=== PATIENT | male | born 1930 | race Caucasian/White ===

== ENCOUNTER → 2016-09-17 | Day surgery (SDC) | payer MEDICARE, BC ==
--- NOTE | 2016-09-14 14:23 | Diagnostic Imaging Report ---
APPROVED REPORT CPT Code: 83110 Present Symptoms Lower Extremity Edema: Bilateral BILATERAL: Imaging reveals a patent deep venous system bilaterally. There is no evidence of thrombus within the femoral, popliteal or tibial segments. The greater saphenous veins are also within normal limits. Doppler indicates normal spontaneous flow within these segments.
--- NOTE | 2016-09-14 14:23 | Diagnostic Imaging Report ---
APPROVED REPORT CPT Code: 52221 Present Symptoms Comments: Pre-op dialysis access evaluation Vein Measurements(cm) Cephalic Basilic Right LeftRight Left 0.36Upper Arm0.260.73Mid Upper Arm0.62 0.50Mid Upper Arm0.220.60Antecubital Fossa0.66 0.26Upper Forearm0.60 0.40Antecubital Fossa0.47Fjopx3.26 0.36Wrist VEIN MAPPING: The right and left basilic and left cephalic veins were imaged and measured to evaluate as a potential graft for dialysis access. BILATERAL UPPER EXTREMITY: Imaging reveals patency of the internal jugular, subclavian, axillary and brachial veins. The cephalic and basilic veins are also patent. Doppler indicates normal spontaneous flow within these venous segments, bilaterally.
[~2016-09-17] VITALS: Ht 176.5 cm; Wt 103.4 kg
[~2016-09-17] MED LIST: AMLODIPINE BES2.5 MG ORAL; AREDS PO; Bacitracin 50000 Units Vial ONE; Bacitracin Oint 15gm Tube TOPIC ONE; Bupivacaine 0.5% Inj 30 ml vial INJ ONE; Dexamethasone 4mg/ml vial ONE; Heparin 5000 units/ml inj ONE; Hydromorphone 0.5mg/0.5ml inj IVP PRN; LEVOTHYROXINE25 MCG ORAL; Lidocaine 1% Plain 30 ml INJ ONE; MIRALAX17 G2 ORAL; Midazolam 2mg/2ml Inj ONE; NITROGLYCERIN 50 MG/10 ML IV ONE; NS 275ml ONE; NS Irrig 1000ml IRRIG ONE; PAPAVERINE 30 MG/ML IVP ONE; PATANASE30.5 GM NS; Propofol 10mg/ml 20ml IV ONE; Sterile Water Irrig 1000ml IRRIG ONE; Surgicel 4in x 8in TOPIC ONE; ZANTAC150 MG ORAL; fentaNYL 250mcg/5ml ONE
[2016-09-17 11:24] VITALS: BP 155/66
--- NOTE | 2016-09-17 12:58 | Pre-Procedure Note/Attestation ---
Pre-Procedure Note/Attestation Complete Prior to Procedure Planned Procedure: left Procedure Narrative: left arm dialysis shunt placement Indications for Procedure Pre-Operative Diagnosis: ESRD Attestation I attest that I discussed the nature of the procedure; its benefits; risks and complications; and alternatives (and the risks and benefits of such alternatives ), prior to the procedure, with the patient (or the patient's legal security representative). I attest that, if there was a reasonable possibility of needing a blood transfusion, the patient (or the patient's legal security representative) was given the [facility] standardized written summary, pursuant to the [place] Blood Safety Act ([place] Health and Safety Code # 1645, as amended). I attest that I re-evaluated the patient just prior to the surgery and that there has been no change in the patient's H&P, except as documented below: CONNIE NETTLES Sep 17, 2016 12:58
--- NOTE | 2016-09-17 13:23 | Anethesia Preoperative Eval ---
Anesthesia Pre-op PMH/ROS General Date of Evaluation: Sep 17, 2016 Time of Evaluation: 12:30 Anesthesiologist: DELFINA ASA Score: ASA 3 Mallampati Score Class I : Soft palate, uvula, fauces, pillars visible Class II: Soft palate, uvula, fauces visible Class III: Soft palate, base of uvula visible Class IV: Only hard plate visible Mallampati Classification: Class II Surgeon: THO Diagnosis: ESRD Surgical Procedure: AV FISTULA PLACEMENT L ARM Anesthesia History: none Family History: no anesthesia problems Allergies: Coded Allergies: PENICILLINS (Verified Allergy, Unknown, 09/16/16) METHYLDOPA (Verified Adverse Reaction, Severe, Nausea/Vomiting, 09/16/16) Medications: see eMAR Past Medical History Cardiovascular: Reports: HTN Pulmonary: Denies: COPD, LEXIE, asthma, other Gastrointestinal/Genitourinary: Reports: ESRD, Denies: CRI, GERD, other Neurologic/Psychiatric: Denies: CVA, TIA, dementia, depression/anxiety, other Endocrine: Denies: DM, hypothyroidism, other, steroids HEENT: Denies: [place] (L), [place] (R), cataract (L), cataract (R), glaucoma, other Hematology/Immune: Denies: DVT, anemia, bleeding disorder, other Musculoskeletal/Integumentary: Denies: DDD, DJD, OA, RA, edema, other Other: obesity Anesthesia Pre-op Phys. Exam Physician Exam Last Vital Signs Date Time Temp Pulse Resp B/P Pulse Ox O2 Delivery O2 Flow Rate FiO2 09/17/16 11:24 97.5 71 20 155/66 100 Room Air Constitutional: NAD Neurologic: CN 2-12 intact Cardiovascular: RRR Respiratory: CTA Gastrointestinal: S/NT/ND Airway Exam Mallampati Score: Class II MO: full ROM: full Teeth: intact Dentures: no lower, no upper Anesthesia Pre-op A/P Labs Chemistry Test 09/17/16 11:15 Potassium Level 3.5 mEQ/L (3.4-4.9) Risk Assessment & Plan Assessment: ASA3 Plan: MAC Status Change Before Surgery: No Pre-Antibiotics Given Within 1 Hr of Incision: ETHAN Au M.D. Sep 17, 2016 13:23
--- NOTE | 2016-09-17 13:25 | Immediate Post-Op Evaluation ---
Immediate Post-Op Evalulation Immediate Post-Op Evalulation Procedure: AV FISTULA PLACEMENTL ARM Date of Evaluation: Sep 17, 2016 Time of Evaluation: 15:30 IV Fluids: 300 Blood Products: 0 Estimated Blood Loss: 0 Urinary Output: 0 Blood Pressure Systolic: 139 Blood Pressure Diastolic: 69 Pulse Rate: 62 Respiratory Rate: 17 O2 Sat by Pulse Oximetry: 98 Temperature (Fahrenheit): 97.1 Pain Score (1-10): 1 Nausea: No Vomiting: No Complications 0 Patient Status: awake, patent, none Hydration Status: adequate Given Within 1 Hr of Incision: ETHAN Au M.D. Sep 17, 2016 13:25
--- NOTE | 2016-09-17 13:26 | 48 Hour Post Anesthesia Eval ---
Post Anesthesia Evaluation Procedure: AV FISTULA PLACEMENTL ARM Date of Evaluation: Sep 17, 2016 Time of Evaluation: 14:55 Blood Pressure Systolic: 145 0: 70 Pulse Rate: 76 Respiratory Rate: 14 Temperature (Fahrenheit): 98 O2 Sat by Pulse Oximetry: 99 Airway: patent Nausea: No Vomiting: No Hydration Status: adequate Cardiopulmonary Status: WNL Mental Status/LOC: patient returned to baseline Post-Anesthesia Complications: O Follow-up care needed: ready to discharge ETHAN MATHIS M.D. Sep 17, 2016 13:26
[2016-09-17 15:15] VITALS: BP 139/69
--- NOTE | 2016-09-17 15:17 | Brief Operative Note ---
Immediate Post Operative Note Operative Note Pre-op Diagnosis: ESRD Procedure: LUE Jj AVF creation Post-op Diagnosis: same as pre-op Findings: consistent w/pre-op dx studies Surgeon: Xiao Anesthesia: local, MAC Specimen: none Complications: none Condition: stable Estimated Blood Loss: minimal Drains: none Implant(s) used?: No CONNIE NETTLES Sep 17, 2016 15:17
[2016-09-17 15:20] VITALS: BP 132/63
[2016-09-17 15:25] VITALS: BP 128/68
[2016-09-17 15:40] VITALS: BP 115/54
[2016-09-17 15:55] VITALS: BP 117/63
--- NOTE | 2016-09-17 21:17 | Operative Note - Dictated ---
DATE OF OPERATION: 09/17/2016 PREOPERATIVE DIAGNOSIS: End-stage renal disease. POSTOPERATIVE DIAGNOSIS: End-stage renal disease. FINDINGS: Below. PROCEDURES: 1. Creation of a Jj dialysis arteriovenous fistula in the left upper extremity. 2. Dilation of left cephalic vein. 3. Intra-arterial and intravenous nitroglycerin injection. SURGEON: Latrell Hagen M.D. ANESTHESIA: MAC with local. INDICATION: The patient is expected to be needing dialysis in the near future and therefore an access was requested per the box coverer hand. INTRAOPERATIVE FINDINGS: The cephalic vein at the wrist level was explored and noted to dilate adequately as described below and therefore a Jj fistula was created as described. The radial artery was also adequate for this purpose. At the end of the procedure, there was a good thrill present in the AV fistula and a good Doppler signal was present at the level of the palmar arch. PROCEDURE IN DETAIL: With the patient in supine position and after the left upper extremity was prepped and draped in usual sterile fashion. Skin was infiltrated with local anesthetic and a longitudinal incision was made along the course of the radial artery at the left wrist level through which the artery was exposed and encircled with vessel loops proximally and distally. The cephalic vein more lateral and the incision was also exposed and followed more distally where it was ligated and divided. It was mobilized enough to allow direct anastomosis to the radial artery. Serial dilators up to 3.5 mm were passed into the vein without significant resistance. It was flushed with heparinized saline and was noted to be widely patent. The end of the vein was then spatulated and after the radial artery was clamped proximally and distally. Longitudinal arteriotomy was made through which the vessel was flushed with heparinized saline proximally and distally and the end-to-side anastomosis to the vein carried out with a continuous suture of 6-0 Prolene. After removal of the vessel loops, excellent flow to the vein was noted and a palpable thrill was present as described above. The wound was irrigated with antibiotic solution and when hemostasis was established it was closed with interrupted sutures of 3-0 Vicryl for the deep layer followed by 4-0 Monocryl subcuticular continuous fashion for skin closure. Skin was cleaned and dried and Dermabond applied to the incision. The patient tolerated the procedure well and was transferred out of the room in stable condition. At the conclusion of procedure, sponge, needle, and instrument counts were correct. ESTIMATED BLOOD LOSS: Minimal. COMPLICATIONS: None. DRAINS: None. SPECIMEN: None. Latrell Hagen M.D. DR: OCTAVIO JOB#: [id number] CC: Diego Grady M.D. ; Fax#: [phone]
[2016-10-07 13:30] VITALS: BP 145/70
== END | disposition home or self-care (01) ==
LOC: SUR 10:38
DX: I12.0 Hypertensive chronic kidney disease with stage 5 chronic kidney disease or end stage renal disease (principal); N18.6 End stage renal disease; Z99.2 Dependence on renal dialysis; R60.9 Edema, unspecified; E03.9 Hypothyroidism, unspecified; E55.9 Vitamin D deficiency, unspecified; K21.9 Gastro-esophageal reflux disease without esophagitis; D68.69 Other thrombophilia; E66.9 Obesity, unspecified; Z68.34 Body mass index [BMI] 34.0-34.9, adult; K29.70 Gastritis, unspecified, without bleeding; K64.4 Residual hemorrhoidal skin tags; M54.9 Dorsalgia, unspecified; M54.30 Sciatica, unspecified side; Z79.1 Long term (current) use of non-steroidal anti-inflammatories (NSAID); Z79.899 Other long term (current) drug therapy; Z88.0 Allergy status to penicillin; Z88.8 Allergy status to other drugs, medicaments and biological substances
CPT/HCPCS: 36415; 84132; 93922; 93970; 94003; 94150; J2250; J2405

== ENCOUNTER → 2016-10-22 | Outpatient (CLI) | payer MEDICARE, BC ==
[~2016-10-22] MED LIST changes: -Bacitracin 50000 Units Vial ONE; -Bacitracin Oint 15gm Tube TOPIC ONE; -Bupivacaine 0.5% Inj 30 ml vial INJ ONE; -Dexamethasone 4mg/ml vial ONE; -Heparin 5000 units/ml inj ONE; -Hydromorphone 0.5mg/0.5ml inj IVP PRN; -Lidocaine 1% Plain 30 ml INJ ONE; -Midazolam 2mg/2ml Inj ONE; -NITROGLYCERIN 50 MG/10 ML IV ONE; -NS 275ml ONE; -NS Irrig 1000ml IRRIG ONE; -PAPAVERINE 30 MG/ML IVP ONE; -Propofol 10mg/ml 20ml IV ONE; -Sterile Water Irrig 1000ml IRRIG ONE; -Surgicel 4in x 8in TOPIC ONE; -fentaNYL 250mcg/5ml ONE
--- NOTE | 2016-10-26 12:11 | Diagnostic Imaging Report ---
APPROVED REPORT CPT Code: 68778 Present Symptoms Comments: AV fistula evaluation and vein mapping(left arm) Risk Factors Post OP Vein Measurements(cm) Cephalic Basilic Right LeftRight Left Upper Arm0.29Mid Upper Arm0.82 Mid Upper Arm0.23Antecubital Fossa6.5 Upper Forearm7.2 Antecubital Fossa0.26Wrist Upper Forearm0.28 Doppler Evaluation (Left) IJV (Left): Spontaneous, Phasic, Augmentation(Dist.), SCV (Left): Spontaneous, Phasic, Augmentation(Dist.), Axillary (L): Spontaneous, Phasic, Augmentation(Dist.), Brachial (L): Spontaneous, Phasic, Augmentation(Dist.), Basilic (L): Spontaneous, Phasic, Augmentation(Dist.), Cephalic (L) : Spontaneous, Phasic, Augmentation(Dist.), VEIN MAPPING: The left basilic and cephalic veins were imaged and measured to evaluate. LEFT UPPER EXTREMITY AVF: Imaging reveals patency of the arterio-venous fistula, the radial artery to the basilic vein, at distal forearm to fossa level. Elevated velocities noted at the arterial anastomosis site. There is no evidence of occlusion, pseudo-aneurysm or abscess. Velocities obtained from the fistula are as follows: Proximal brachial artery: 174 cm/s Proximal anastomosis: 0 3.1 cm, 392 cm/s MID AVF 0.82 cm Distal AVF 0.55 cm Distal arterial anastomosis: 0.2.9 cm, 653 cm/s Radial artery: distal 125 cm/s ulnar artery 112 cm/s UPPER EXTREMITY: Venous imaging reveals patency of the deep venous system. Doppler indicates normal spontaneous flow within these venous segments.
== END | disposition home or self-care (01) ==
LOC: VAS 14:14
DX: N18.6 End stage renal disease (principal)
CPT/HCPCS: 93990